=== PATIENT | female | born 1945 | race Caucasian/White ===

== ENCOUNTER 2024-06-23 14:13 | Inpatient (IN) | payer MEDICARE, SELFPAY ==
[2024-06-23] VITALS (7 sets, daily range): BP systolic 130–152; BP diastolic 59–71; PULSE 88–98; RESP 16–22; TEMP 36.5–37.3; O2SAT 96–100; BMI 24.0
--- NOTE | ~2024-06-23 | CT_ITS ---
CT brain wo con Ordering provider: Srini Torres History: 78 years Female with . ams post cva . Comparison: None. Technique: CT of the head without contrast. Radiation reduction technique utilized.The dose-length product was 605.33 mGy-cm. FINDINGS: BRAIN PARENCHYMA AND CSF SPACES: Mild leukoaraiosis and diffuse cortical atrophy. Mild atheromatous d isease. Air is seen in the anterior left lateral ventricle. Slightly dilated ventricles. Post emboliz ation for an aneurysm is seen in the area of the suprasellar area. Slight density seen in the lateral ventricles which may indicate old hemorrhagic changes. No midline shift, mass effect or acute hemorr anita. The brain parenchyma and CSF spaces are otherwise normal. VISUALIZED PARANASAL SINUSES: Left frontal, bilateral ethmoidal and left maxillary sinus disease. MASTOIDS: Well aerated. BONES: Postoperative changes in the right frontal bone evaluation of the tube is noted. Otherwise, Th e bones appear intact. SOFT TISSUES: Visualized nasopharynx is normal. Superficial soft tissues are normal. IMPRESSION: Hydrocephalus with air seen in the anterior left frontal horn. No evidence of acute hemorrhage or infarct seen. Possible old hemorrhage in the lateral ventricles. Postoperative changes in the right frontal bone for a shunt tube. No shunt tube is seen at this time. Reviewed, dictated and finalized at location A. OR [employer] DEVELOPER
--- NOTE | ~2024-06-23 | XR_ITS ---
XR chest 1V Ordering provider: Srini Torres History: 78 years Female with . ams, PT POOR HISTORIAN . Comparison: None. FINDINGS: MEDIASTINUM: The cardiac silhouette is not enlarged. LUNGS: No effusions or pneumothorax. . Prominent bronchovascular markings in the lower lobes with inf iltrate in the right lower lobe suggestive of atelectasis versus pneumonia. OTHER: No free air under the diaphragm. Degenerative changes of the spine. IMPRESSION: Atelectasis versus pneumonia in the lung bases more on the right side. Clinical correlation advised. Reviewed, dictated and finalized at location A. TER MONITOR
--- NOTE | 2024-06-23 14:18 | ECG_ITS ---
Test Date: 2024-06-23 15:49:53 Measurements Intervals [place] Rate: 90 P: 22 AR: 173 QRS: 0 QRSD: 108 T: 4 QT: 324 QTc: 397 Interpretive Statements SINUS RHYTHM MINIMAL Q WAVES- HIGH LATERAL LEADS BORDERLINE T WAVE ABNORMALITY- ANTERIOR LEADS BASELINE ARTIFACT- I, II, III, AVL, V2, V5-V6 BORDERLINE ECG No previous ECG available for comparison Electronically Signed On 06-23-2024 16:21:09 NETWORK CONTROL SUPERVISOR by Jus Mccoy D.O.
--- NOTE | 2024-06-23 16:17 | ED_ITS ---
HPI - General Adult General Chief complaint: Neuro Symptoms/Deficit Stated complaint: altered mental status Time Seen by Provider: 06/23/24 15:36 History of Present Illness HPI narrative: 78-year-old female presents emergency department for evaluation for increased altered mental status. Patient does have a history of a subarachnoid hemorrhage and is currently residing in a local care facility. They report that the patient has had mental decline over the last 3 days. Patient is responsive to adverse stimuli at this time. Related Data Home Medications Medication Instructions Recorded Confirmed etanercept 50 mg/mL (1 mL) 50 mg subcut WEEKLY 06/23/24 06/23/24 subcutaneous pen injector (Enbrel SureClick) folic acid 1 mg tablet 1 mg PO DAILY 06/23/24 06/23/24 levetiracetam 100 mg/mL oral 750 mg PO Q12H 06/23/24 06/23/24 solution (Keppra) methotrexate sodium 2.5 mg tablet 2.5 mg PO WEEKLY 06/23/24 06/23/24 metoprolol tartrate 50 mg tablet 50 mg PO TID 06/23/24 06/23/24 Allergies Allergy/AdvReac Type Severity Reaction Status Date / Time No Known Allergies Allergy Verified 06/23/24 20:11 [facility] Family History Family History (Updated 06/23/24 @ 20:07 by Manisha Pool RN) Father Kidney disease Social History Social History Smoking status: Never smoker Do You Feel Safe in your Home?: Yes Lack of Transportation: No Lack of Food: Never True Current Housing: I Have Housing Concerned About Future Housing: No Difficulty Paying Gas/Electric Bills: No Difficulty Paying for Meds: No Currently Unemployed: No Education: Bachelor's Degree Difficulty w/ Childcare or Family Care: No Spiritual care concerns: No Course Vital Signs Vital signs: Vital Signs Pulse Rate 95 06/23/24 14:18 Respiratory Rate 17 06/23/24 14:18 Blood Pressure 151/69 H 06/23/24 14:18 Pulse Oximetry 96 06/23/24 14:18 Temperature 97.3 F L 06/24/24 13:21 Pulse Rate 87 06/24/24 17:43 Respiratory Rate 22 H 06/24/24 17:41 Blood Pressure 133/55 L 06/24/24 17:41 Pulse Oximetry 100 06/24/24 17:41 Oxygen Delivery Room Air 06/24/24 09:34 Medical Decision Making MDM Narrative Medical decision making narrative: 78-year-old female present to the emergency department for evaluation for increased altered mental status. Chest x-ray was concerning for possible underlying pneumonia head CT shows no acute intracranial abnormality-areas of old hemorrhage and ablation. CT scan showed no acute bleeding but was concerning for possible hydrocephalus. Images were sent to patient's neurosurgical team at [facility] in [place]. I did discuss the case with the hospitalist at [place] and patient was accepted for admission as long as neurosurgery is not concerned about any changes between the CT scans. I did discuss the CT scans within the neuro surgical team at [facility] and they felt that the images were unchanged or improved compared to when patient had been admitted their facility. Patient did have hydrocephalus at that time as well. I rediscussed the case with the hospitalist patient was accepted for admission. Patient was started on antibiotics for suspected pneumonia As the possible underlying etiology for change in mental status. Differential Diagnosis Differential Diagnosis: Worsening subarachnoid hemorrhage, hydrocephalus, meningitis, pneumonia, UTI, COVID, RSV, influenza, CVA, TIA, seizure Medical Records Medical records reviewed: Yes I reviewed the external patient's medical records. Vital Signs Vital Signs: Vital Signs Pulse Rate 95 06/23/24 14:18 Respiratory Rate 17 06/23/24 14:18 Blood Pressure 151/69 H 06/23/24 14:18 Pulse Oximetry 96 06/23/24 14:18 Temperature 97.3 F L 06/24/24 13:21 Pulse Rate 87 06/24/24 17:43 Respiratory Rate 22 H 06/24/24 17:41 Blood Pressure 133/55 L 06/24/24 17:41 Pulse Oximetry 100 06/24/24 17:41 Oxygen Delivery Room Air 06/24/24 09:34 Lab Data Lab results reviewed: Yes I reviewed the patient's lab results. 06/24/24 08:26 06/24/24 08:26 Labs: Lab Results 06/23/24 Range/Units 17:19 WBC 8.6 (4.5-10.0) K/mm3 RBC 2.78 L (4.2-5.4) M/mm3 Hgb 9.2 L (12.0-15.0) g/dL Hct 28.8 L (37.0-47.0) % MCV 103.6 H (80-100) fl MCH 33.1 (26-34) pg MCHC 31.9 L (32-36) g/dl RDW 13.5 (11.5-14.5) % Plt Count 361 (150-375) k/mm3 MPV 10.6 H (7.4-10.4) fl Immature Gran % (Auto) Not Reportable Neut % (Auto) Not Reportable Lymph % (Auto) Not Reportable [place] % (Auto) Not Reportable Eos % (Auto) Not Reportable Baso % (Auto) Not Reportable Lymph # (Auto) Not Reportable [place] # (Auto) Not Reportable Eos # (Auto) Not Reportable Baso # (Auto) Not Reportable Abs Immat Gran (auto) Not Reportable Absolute Neuts (auto) Not Reportable Absolute Nucleated RBC Not Reportable Total Counted 100 Neutrophils % (Manual) 56 (46-73) % Lymphocytes % (Manual) 28.0 (18-44) % Monocytes % (Manual) 6 (3-9) % Eosinophils % (Manual) 10 H (0-4) % Nucleated RBC % Not Reportable Abs Lymphs (Manual) 2.40 (1.1-4.5) K/mm3 Abs Monocytes (Manual) 0.51 (0.1-0.90) K/mm3 Absolute Eos (Manual) 0.86 H (0.02-0.50) K/mm3 Platelet Estimate Adequate (Adequate) Hypochromasia 1+ Schistocytes None seen Sodium 137 (137-145) mmol/L Potassium 4.1 (3.4-5.0) mmol/L Chloride 100 (98-107) mmol/L Carbon Dioxide 31 H (22-30) mmol/L Anion Gap 6 (4-12) mmol/L BUN 18 H (7-17) mg/dL Creatinine 0.40 L (0.7-1.0) mg/dL Estim Creat Clear Calc 103 ml/min Estimated GFR > 60 (59 - ) Glucose 110 (65-110) mg/dL Lactic Acid 1.2 (0.7-2.0) mmol/L Calcium 8.3 L (8.4-10.2) mg/dL Total Bilirubin 0.3 (0.2-1.3) mg/dL AST 39 H (14-36) U/L ALT 32 (6-35) U/L Alkaline Phosphatase 107 (38-126) U/L C-Reactive Protein 5.6 H (<1.0) mg/dL Total Protein 7.0 (6.3-8.2) g/dL Albumin 3.3 L (3.5-5.1) g/dL Influenza A (RT-PCR) Negative (Negative) Influenza B (RT-PCR) Negative (Negative) RSV (RT-PCR) Negative (Negative) SARS-CoV-2 RNA (RT-PCR) Negative (Negative) Imaging Data Radiologist's impression: Impressions Head CT 06/23/24 14:32 IMPRESSION: Hydrocephalus with air seen in the anterior left frontal horn. No evidence of acute hemorrhage or infarct seen. Possible old hemorrhage in the lateral ventricles. Postoperative changes in the right frontal bone for a shunt tube. No shunt tube is seen at this time. Chest X-Ray 06/23/24 14:47 IMPRESSION: Atelectasis versus pneumonia in the lung bases more on the right side. Clinical correlation advised. Critical Care Time Critical Care Time Critical Care Time: Yes Total Critical Care Time: 35 Discharge Plan Discharge Clinical Impression: Right lower lobe pneumonia, Encephalopathy acute, Delirium Patient Disposition: Still a Patient Condition: Serious
[2024-06-23 17:32] LABS: Hematocrit 28.8 % (37.0-47.0); Hemoglobin 9.2 g/dL (12.0-15.0); Mean Corpuscular HGB Conc 31.9 g/dl (32-36); Mean Corpuscular Hemoglobin 33.1 pg (26-34); Mean Corpuscular Volume 103.6 fl (80-100); Mean Platelet Volume 10.6 fl (7.4-10.4); Platelet Count Result 361 k/mm3 (150-375); Red Blood Count 2.78 M/mm3 (4.2-5.4); Red Cell Distribution Width 13.5 % (11.5-14.5); White Blood Count 8.6 K/mm3 (4.5-10.0)
[2024-06-23 17:44] LABS: Lactic Acid Reflex 1.2 mmol/L (0.7-2.0)
[2024-06-23 17:46] LABS: Alanine Aminotransferase 32 U/L (6-35); Albumin Level 3.3 g/dL (3.5-5.1); Alkaline Phosphatase 107 U/L (38-126); Anion Gap 6 mmol/L (4-12); Aspartate Amino Transferase 39 U/L (14-36); Bilirubin,Total 0.3 mg/dL (0.2-1.3); Blood Urea Nitrogen 18 mg/dL (7-17); CRP 5.6 mg/dL (<1.0); Calcium 8.3 mg/dL (8.4-10.2); Carbon Dioxide 31 mmol/L (22-30); Chloride 100 mmol/L (98-107); Estimated CRCL calculation 103 ml/min; Estimated Glomerular Filt Rate > 60; Glucose 110 mg/dL (65-110); Potassium 4.1 mmol/L (3.4-5.0); Sodium 137 mmol/L (137-145)
[2024-06-23 18:03] LABS: Eosinophils Absolute Manual 0.86 K/mm3 (0.02-0.50); Eosinophils Percent Manual 10 % (0-4); Monocytes Absolute Manual 0.51 K/mm3 (0.1-0.90); Monocytes Percent Manual 6 % (3-9); Neutrophils Percent Manual 56 % (46-73); Total Cells Counted 100
[2024-06-23 18:04] LABS: Hypochromasia 1+; Platelet Estimate Adequate (Adequate); Schistocytes None Seen
[2024-06-23 18:08] LABS: Influenza A QL RT-PCR Negative (Negative); Influenza B QL RT-PCR Negative (Negative); RSV RNA, RT-PCR Negative (Negative); SARS-CoV-2 RNA PCR Negative (Negative)
[2024-06-23 20:00] LABS: INR 1.1
[2024-06-23 20:33] LABS: Prothrombin Time 15.1 Seconds (11.1-14.7)
--- NOTE | 2024-06-23 20:50 | P.HP_ITS ---
H&P: HPI History of Present Illness Date/Time: 06/23/24 20:50 Chief Complaint: altered mental status Narrative: This is a 78-year-old with history of recent intracranial bleed, patient at rehabilitation center was brought to the emergency room today due to altered mental status, lethargy. Patient is unable to give any history most of which has been obtained from daughter and son who were at bedside. Preliminary workup significant for chest x-ray with right-sided base pneumonia. CT brain wo con Ordering provider: Srini Torres History: 78 years Female with . ams post cva . Comparison: None. Technique: CT of the head without contrast. Radiation reduction technique utilized.The dose-length product was 605.33 mGy- cm. FINDINGS: BRAIN PARENCHYMA AND CSF SPACES: Mild leukoaraiosis and diffuse cortical atrophy. Mild atheromatous disease. Air is seen in the anterior left lateral ventricle. Slightly dilated ventricles. 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 Slight density seen in the lateral ventricles which may indicate old hemorrhagic changes. No midline shift, mass effect or acute hemorrhage. The brain parenchyma and CSF spaces are otherwise normal. VISUALIZED PARANASAL SINUSES: Left frontal, bilateral ethmoidal and left maxillary sinus disease. MASTOIDS: Well aerated. BONES: Postoperative changes in the right frontal bone evaluation of the tube is noted. Otherwise, The bones appear intact. SOFT TISSUES: Visualized nasopharynx is normal. Superficial soft tissues are normal. IMPRESSION: Hydrocephalus with air seen in the anterior left frontal horn. No evidence of acute hemorrhage or infarct seen. Possible old hemorrhage in the lateral ventricles. Postoperative changes in the right frontal bone for a shunt tube. No shunt tube is seen at this time. XR chest 1V Ordering provider: Srini Torres History: 78 years Female with . ams, PT POOR HISTORIAN . Comparison: None. FINDINGS: MEDIASTINUM: The cardiac silhouette is not enlarged. LUNGS: No effusions or pneumothorax. . Prominent bronchovascular markings in the lower lobes with infiltrate in the right lower lobe suggestive of atelectasis versus pneumonia. OTHER: No free air under the diaphragm. Degenerative changes of the spine. IMPRESSION: Atelectasis versus pneumonia in the lung bases more on the right side. Clinical correlation advised. Review of Systems Review of Systems: ROS unobtainable: Yes unobtainable due to mental status ( Lethargy/obtunded) [facility] Family History Family History (Updated 06/23/24 @ 20:07 by Manisha Pool RN) Father Kidney disease Social History Social History Smoking status: Never smoker Do You Feel Safe in your Home?: Yes Lack of Transportation: No Lack of Food: Never True Current Housing: I Have Housing Concerned About Future Housing: No Difficulty Paying Gas/Electric Bills: No Difficulty Paying for Meds: No Currently Unemployed: No Education: Bachelor's Degree Difficulty w/ Childcare or Family Care: No Spiritual care concerns: No Meds Home Medications and Allergies Home Medications Medication Instructions Recorded Confirmed Type etanercept 50 mg/mL (1 mL) 50 mg subcut WEEKLY 06/23/24 06/23/24 History subcutaneous pen injector (Enbrel SureClick) folic acid 1 mg tablet 1 mg PO DAILY 06/23/24 06/23/24 History levetiracetam 100 mg/mL oral 750 mg PO Q12H 06/23/24 06/23/24 History solution (Keppra) methotrexate sodium 2.5 mg tablet 2.5 mg PO WEEKLY 06/23/24 06/23/24 History metoprolol tartrate 50 mg tablet 50 mg PO TID 06/23/24 06/23/24 History Allergies Allergy/AdvReac Type Severity Reaction Status Date / Time No Known Allergies Allergy Verified 06/23/24 20:11 Vital Signs Vital Signs - 24 hr 06/23/24 14:23 06/23/24 14:25 06/23/24 16:28 Temperature 99.2 F 97.9 F 98.9 F Pulse Rate 93 93 88 Respiratory Rate 20 22 H 17 Blood Pressure 152/71 H 134/67 Pulse Oximetry 98 100 96 06/23/24 14:18 06/23/24 20:15 Temperature 99.0 F Pulse Rate 95 96 Respiratory Rate 17 19 Blood Pressure 151/69 H 130/62 Pulse Oximetry 96 97 Exam Narrative: laying in bed Const: General: comfortable, no acute distress, well developed, ill appearing acutely, lethargic, patient obtunded and average body habitus Nutritional Appearance: average body habitus Orientation/consciousness: oriented to person HENMT: Head: normal to inspection, normocephalic and atraumatic Ears: hearing grossly normal bilaterally Face/Nose/Sinus: normal facial exam Face and sinus: normal facial exam Other: shaved right frontoparietal area Eyes: General: appearance normal, both eyes and all related structures Pupils: Equal, round and reactive pupils present EOM: EOMs intact bilaterally Neck: Neck: full ROM, no lymphadenopathy and no JVD Thyroid: thyroid normal Lymphatic: no lymphadenopathy noted Resp: Effort & Inspection: normal respiratory effort and able to speak in complete sentences Auscultation: clear to auscultation bilaterally Cardio: Jugular venous distension: no JVD Rate: regular rate Rhythm: regular rhythm Heart sounds: S1 normal heart sound present and S2 normal heart sound present GI: Inspection: other ( PEG tube in place) GI Palp: Yes Soft to palpation and Yes No hepatosplenomegaly present : General: Yes deferred Skin: Rashes: no rashes Wounds: no wounds Neuro: General: oriented to person, no focal motor deficits, CN's II-XI intact bilaterally and Unable to assess gait Cranial nerves: Yes CN's II-XII intact bilaterally, Yes Equal, round and reactive pupils present, Yes Bilaterally intact EOM present and Yes facial symmetry Cognition (Neuro): abnormal cognition ( lethargy/[place]) Speech: normal speech Gait exam (Neuro): Unable to assess gait Motor exam (neuro): 5/5 motor strength present throughout Other: patient moves all 4 limbs Extrem: General: normal to inspection, full ROM, no joint enlargement and no pedal edema H&P: Results Labs Labs: Short CBC 06/23/24 Range/Units 17:19 WBC 8.6 (4.5-10.0) K/mm3 Hgb 9.2 L (12.0-15.0) g/dL Hct 28.8 L (37.0-47.0) % Plt Count 361 (150-375) k/mm3 [facility] 06/23/24 17:19 Sodium 137 Potassium 4.1 Chloride 100 Carbon Dioxide 31 H BUN 18 H Creatinine 0.40 L Glucose 110 Calcium 8.3 L Liver Function 06/23/24 Range/Units 17:19 Total Bilirubin 0.3 (0.2-1.3) mg/dL AST 39 H (14-36) U/L ALT 32 (6-35) U/L Alkaline Phosphatase 107 (38-126) U/L Albumin 3.3 L (3.5-5.1) g/dL Assessment and Plan Assessment and plan (1) Right lower lobe pneumonia: Code(s): J18.9 - Pneumonia, unspecified organism Status: Acute Assessment and Plan: admit to regular medical floor patient is started on Rocephin and Zithromax await cultures (2) Encephalopathy acute: Code(s): G93.40 - Encephalopathy, unspecified Status: Acute Assessment and Plan: likely secondary to 1. In the setting of recent intracranial bleed (3) Intracranial bleed: Code(s): I62.9 - Nontraumatic intracranial hemorrhage, unspecified Status: Acute Assessment and Plan: patient is recovering at [facility] happened on May [id number] Hospitalist [facility] Advance Care Plan I have confirmed that the patient's Advanced Care Plan is present, code status is documented, or surrogate decision maker is listed in patient medical record.: Yes Medication Reconciliation I have utilized all available resources to obtain, update and review the patients current medications (includes all prescriptions, OTC, herbals, cannabis, and nutritional supplements).: Yes
[2024-06-23] MEDS: AZITHROMYCIN 500 MG/NS 250 ML 500 MG/250 ML BAG 250 MG IVPB (21:14)
--- NOTE | 2024-06-23 22:02 | ADMGEN ---
This patient, Luly Kirkland, was admitted to Medical Room 251-. Patient/family oriented to hospital policies and general routines including ID bracelet, bed and alarms, visiting hours, pain management, procedures, bathroom and other care routines, personal items, smoking policy, room service/diet, and visiting hours. Information on how to activate the Rapid Response Team has been discussed. Patient/Family are encouraged to report perceived risks to care and to ask questions if they do not understand what they are told or what they should do.
[2024-06-24] VITALS (12 sets, daily range): BP systolic 131–140; BP diastolic 51–64; PULSE 78–98; RESP 14–26; TEMP 36.3–37.2; O2SAT 96–100; BMI 24.0
[2024-06-24] MEDS: levETIRAcetam ORAL SOL 500 MG/5 ML UDC 750 MG PO ×3 (02:19→20:12)
[2024-06-24 02:21] LABS: Glucose Point of Care 124 mg/dl (65-105)
--- NOTE | 2024-06-24 06:54 | PM.IMPN ---
Progress Note: A&P Assessment and Plan (1) Encephalopathy acute: Code(s): G93.40 - Encephalopathy, unspecified Status: Acute Assessment and Plan: Per patient's daughter Florinda patient was AOx2 (self and place) while at [facility]. Head CT: Hydrocephalus with air seen in the anterior left frontal horn. No evidence of acute hemorrhage or infarct seen. Possible old hemorrhage in the lateral ventricles. Postoperative changes in the right frontal bone for a shunt tube. No shunt tube is seen at this time. CXR: Atelectasis versus pneumonia in the lung bases more on the right side UA ordered UDS ordered See plan for right lower lobe pneumonia #2 (2) Right lower lobe pneumonia: Code(s): J18.9 - Pneumonia, unspecified organism Status: Acute Assessment and Plan: CXR: Atelectasis versus pneumonia in the lung bases more on the right side - Antibiotics: Azithromycin 500mg IV q24H and Ceftriaxone 1 g IV q24H started 06/23. Rocephin transitioned to Cefepime 2 g q8H for HAP given patients recent admission at [facility] and SNF placement. - Viral PCR: negative for Flu/COVID/RSV - MRSA negative - Blood cultures obtained on 06/23: pending - no supplemental O2 requirement - supportive treatment - Monitor vital signs, I&Os, neuro status and patient is a fall risk - Follow WBC, serum electrolytes, temperature curves and cultures (3) Intracranial bleed: Code(s): I62.9 - Nontraumatic intracranial hemorrhage, unspecified Status: Acute Assessment and Plan: Per ED note, images were sent to patient's neurosurgical team at [facility] in [place]. ED provider sent CT scans to the neuro surgical team at [facility] and they felt that the images were unchanged or improved compared to when patient had been admitted their facility. Patient did have hydrocephalus at that time as well. Head CT: Hydrocephalus with air seen in the anterior left frontal horn. No evidence of acute hemorrhage or infarct seen. Possible old hemorrhage in the lateral ventricles. Postoperative changes in the right frontal bone for a shunt tube. No shunt tube is seen at this time. - Continue keppra 750 mg BID and metoprolol 50 mg TID (4) Anemia: Code(s): D64.9 - Anemia, unspecified Status: Acute Assessment and Plan: H/H 9.2/28.8 on admission. Unsure what baseline is as there is no prior labs for comparison. No signs of active bleeding. - H/H 9.7/30.2 on am labs - Iron panelL iron 38, TIBC 200, % sat 18 - B12 and folate WNL - started on iron supplementation - Monitor Time Spent With Patient Time with patient: 25 - 35 minutes Subjective Date/time seen: 06/24/24 06:54 Interval history: 78 year old female with past medical history of hypertension and SAH on 05/23/2024 (evaluated at [facility]) presents to the hospital for altered mental status and lethargy. Patient is alert to voice. Following some commands. History obtained from daughter, Florinda. She states that her mom was being treated for SAH at [facility] on 05/23 before being DC to [facility]. She was doing well AOx2 baseline (self, place. per daughter patient never knows year or whats going). However Florinda then noticed that patient was having more difficulty verbalizing and became more lethargic prompting them to take her to the hospital. Daughter states that the patient is doing better today at least saying one word that is clear. Discussed patient with nutrition who is talking with [facility] about patients tube feeds. Will resume tube feeds accordingly. Per daughter patient was also on a thickened liquid diet at the facility. As mentation improves can consider a MBS. Review of Systems Review of Systems: ROS unobtainable: Yes unobtainable due to mental status Exam Narrative: AF HR 86 RR 26 SpO2 97 BP 131/51 General: female in no acute respiratory distress who is ill appearing, lying semi recumbent in bed. HEENT: Normocephalic. Atraumatic. Pupils equal round reactive to light. Sclera clear and anicteric. No facial asymmetry. Chest: Lungs are diminshed to auscultation bilaterally. No wheezes or crackles. CV: Heart was regular rate and rhythm. S1-S2. No murmurs, gallops, or rubs. Abd: Abdomen was soft. Nontender. Nondistended. Positive bowel sounds. No organomegaly or masses. Ext: No clubbing, cyanosis, or edema. 2+ DP pulses bilaterally. Neuro: Patient is alert to voice. Follows some commands. Says minimal words but speech is clear at that time. Strength is symmetrical in the upper extremities. Moving the lower extremities. Skin: Warm and dry. Slight rash/dry skin noted to patients left side of her chest. Objective Data Vital Signs Vital Signs: Vital Signs - 24 hr 06/23/24 14:23 06/23/24 14:25 06/23/24 16:28 Temperature 99.2 F 97.9 F 98.9 F Pulse Rate 93 93 88 Respiratory Rate 20 22 H 17 Blood Pressure 152/71 H 134/67 Pulse Oximetry 98 100 96 Oxygen Delivery 06/23/24 14:18 06/23/24 20:15 06/23/24 20:56 Temperature 99.0 F 97.7 F Pulse Rate 95 96 98 Respiratory Rate 17 19 16 Blood Pressure 151/69 H 130/62 133/59 L Pulse Oximetry 96 97 97 Oxygen Delivery 06/23/24 23:34 06/24/24 00:04 06/24/24 05:30 Temperature 98.9 F Pulse Rate 98 98 93 Respiratory Rate 16 14 Blood Pressure 134/62 Pulse Oximetry 97 98 Oxygen Delivery Room Air 06/24/24 04:01 Temperature Pulse Rate 91 Respiratory Rate Blood Pressure Pulse Oximetry Oxygen Delivery Intake/Output Intake/Output: Intake & Output 06/21/24 06/22/24 06/23/24 06/24/24 23:59 23:59 23:59 23:59 Intake Total 50 0 Output Total 400 Balance 50 -400 Meds/Results Medications: Active Medications Generic Name Dose Route Start Last Admin Trade Name Freq PRN Reason Stop Dose Admin Acetaminophen 1,000 mg 06/24/24 01:19 Acetaminophen 500 Mg Tablet PO Q6H PRN Mild Pain (1-3) or Fever Ceftriaxone Sodium 1 gm in 50 mls @ 100 mls/hr 06/24/24 18:00 Rocephin 1 Gm/Ns 50 Ml IVPB Q24H LOC Azithromycin 500 mg in 250 mls @ 250 mls/hr 06/24/24 18:00 Zithromax IVPB Q24H LOC Levetiracetam 750 mg 06/24/24 01:00 06/24/24 02:19 Levetiracetam Oral Christin 500 Mg/5 Ml Udc PO 750 mg Q12HR LOC Administration Metoprolol Tartrate 50 mg 06/24/24 09:00 Metoprolol Tartrate 50 Mg Tab PO TID LOC Ondansetron HCl 4 mg 06/24/24 00:59 Ondansetron Inj 4 Mg/2 Ml Vial IV PUSH Q6H PRN Nausea And Vomiting Radiology Results: ITS Impressions Head CT 06/23/24 14:32 IMPRESSION: Hydrocephalus with air seen in the anterior left frontal horn. No evidence of acute hemorrhage or infarct seen. Possible old hemorrhage in the lateral ventricles. Postoperative changes in the right frontal bone for a shunt tube. No shunt tube is seen at this time. Chest X-Ray 06/23/24 14:47 IMPRESSION: Atelectasis versus pneumonia in the lung bases more on the right side. Clinical correlation advised. Labs Labs: Laboratory Results - last 24 hr 06/23/24 06/23/24 06/24/24 17:19 19:37 02:19 WBC 8.6 RBC 2.78 L Hgb 9.2 L Hct 28.8 L MCV 103.6 H MCH 33.1 MCHC 31.9 L RDW 13.5 Plt Count 361 MPV 10.6 H Immature Gran % (Auto) Not Reportable Neut % (Auto) Not Reportable Lymph % (Auto) Not Reportable [place] % (Auto) Not Reportable Eos % (Auto) Not Reportable Baso % (Auto) Not Reportable Lymph # (Auto) Not Reportable [place] # (Auto) Not Reportable Eos # (Auto) Not Reportable Baso # (Auto) Not Reportable Abs Immat Gran (auto) Not Reportable Absolute Neuts (auto) Not Reportable Absolute Nucleated RBC Not Reportable Total Counted 100 Neutrophils % (Manual) 56 Lymphocytes % (Manual) 28.0 Monocytes % (Manual) 6 Eosinophils % (Manual) 10 H Nucleated RBC % Not Reportable Abs Lymphs (Manual) 2.40 Abs Monocytes (Manual) 0.51 Absolute Eos (Manual) 0.86 H Platelet Estimate Adequate Hypochromasia 1+ Schistocytes None seen PT 15.1 H INR 1.1 APTT 20.0 L Sodium 137 Potassium 4.1 Chloride 100 Carbon Dioxide 31 H Anion Gap 6 BUN 18 H Creatinine 0.40 L Estim Creat Clear Calc 103 Estimated GFR > 60 Glucose 110 POC Capillary Glucose 124 H Lactic Acid 1.2 Calcium 8.3 L Total Bilirubin 0.3 AST 39 H ALT 32 Alkaline Phosphatase 107 C-Reactive Protein 5.6 H Total Protein 7.0 Albumin 3.3 L Influenza A (RT-PCR) Negative Influenza B (RT-PCR) Negative RSV (RT-PCR) Negative SARS-CoV-2 RNA (RT-PCR) Negative Quality VTE Prophylaxis VTE prophylaxis: mechanical ordered
[2024-06-24 08:35] LABS: Glucose Point of Care 110 mg/dl (65-105)
[2024-06-24 08:41] LABS: Basophils Percent Auto 0.6 % (0.2-1.2); Eosinophils Absolute Auto 1.5 K/mm3 (0-0.3); Eosinophils Percent Auto 20.6 % (0-4.4); Hematocrit 30.2 % (37.0-47.0); Hemoglobin 9.7 g/dL (12.0-15.0); Immature Granulocyte Absolute 0.02 K/mm3 (0.00-0.031); Immature Granulocyte Percent A 0.3 % (0-0.5); Lymphocytes Absolute Auto 1.86 K/mm3 (0.9-3.2); Lymphocytes Percent Auto 25.9 % (18.3-44.2); Mean Corpuscular HGB Conc 32.1 g/dl (32-36); Mean Corpuscular Hemoglobin 32.8 pg (26-34); Monocytes Absolute Auto 0.6 K/mm3 (0.1-0.6); Monocytes Percent Auto 8.4 % (2.6-8.5); Neutrophils Absolute Auto 3.2 K/mm3 (1.3-6.7); Neutrophils Percent Auto 44.2 % (45.5-73.1); Platelet Count Result 408 k/mm3 (150-375); Red Blood Count 2.96 M/mm3 (4.2-5.4); Red Cell Distribution Width 13.5 % (11.5-14.5); White Blood Count 7.2 K/mm3 (4.5-10.0)
[2024-06-24 08:51] LABS: Alanine Aminotransferase 30 U/L (6-35); Albumin Level 3.2 g/dL (3.5-5.1); Alkaline Phosphatase 105 U/L (38-126); Anion Gap 6 mmol/L (4-12); Aspartate Amino Transferase 34 U/L (14-36); Bilirubin,Total 0.4 mg/dL (0.2-1.3); Blood Urea Nitrogen 12 mg/dL (7-17); Calcium 8.4 mg/dL (8.4-10.2); Carbon Dioxide 30 mmol/L (22-30); Chloride 101 mmol/L (98-107); Estimated CRCL calculation 71 ml/min; Estimated Glomerular Filt Rate > 60; Glucose 113 mg/dL (65-110); Potassium 4.1 mmol/L (3.4-5.0); Sodium 137 mmol/L (137-145)
[2024-06-24] MEDS: METOPROLOL TARTRATE 50 MG TAB PO ×3 (09:34→17:43)
[2024-06-24 10:39] LABS: Iron 38 ug/dL (37-170)
[2024-06-24 10:49] LABS: Percent Iron Saturation 19 % (20-50)
[2024-06-24 11:46] LABS: Folic Acid 19.7 ng/mL (2.76->20)
[2024-06-24] MEDS: CEFEPIME 2 GM/NS 50 ML 2 GM/50 ML BAG IVPB ×2 (13:11→21:57)
[2024-06-24] MEDS: HYDROCORTISONE 1% 30 GM CREAM 1 APPLIC TOPICAL ×2 (14:22→20:12)
[2024-06-24 15:12] LABS: Glucose Point of Care 110 mg/dl (65-105)
[2024-06-24 16:01] LABS: Toxigenic C. Diff NEGATIVE (NEGATIVE)
[2024-06-24] MEDS: SODIUM CHLORIDE 0.9% IV 1,000 ML 75 ML IV CONT (17:30)
[2024-06-24] MEDS: AZITHROMYCIN 500 MG/NS 250 ML 500 MG/250 ML BAG 250 MG IVPB (17:43)
[2024-06-24] MEDS: FERROUS SULFATE 325 MG TABLET DR PO (17:44)
[2024-06-24] MEDS: LORATADINE 10 MG TABLET PO (19:14)
[2024-06-24 20:37] LABS: Glucose Point of Care 121 mg/dl (65-105)
[2024-06-25] VITALS (13 sets, daily range): BP systolic 129–143; BP diastolic 51–61; PULSE 82–96; RESP 14–20; TEMP 36.6–37.6; O2SAT 95–100; BMI 10.0
[2024-06-25 05:04] LABS: Add Urine Microscopic? YES; Appearance Urine Turbid (Clear); Bacteria Urine 4+ /hpf; Bilirubin Urine Negative (Negative); Blood Urine Negative (Negative); Budding Yeast Urine Present /hpf; Color Urine Dark Yellow (Yellow); Glucose Urine UA Negative (Negative); Ketones Urine Negative (Negative); Leukocyte Esterase Ur 2+ LEU/UL (Negative); Need Manual Microscopic Reviewed; Nitrate Urine Negative (Negative); Non Pathogenic Casts 0-2; Protein Urine 1+ mg/dL (Negative); RBC Urine 51-100 /hpf (0-2); Specific Grav Ur 1.024 (1.001-1.035); Squamous Epithelial Cell Urine None Seen /hpf (Few); WBC Urine 21-50 /hpf (0-3); pH Urine 7.5 (5.0-9.0)
[2024-06-25] MEDS: CEFEPIME 2 GM/NS 50 ML 2 GM/50 ML BAG IVPB ×3 (05:23→22:11)
[2024-06-25 05:34] LABS: Basophils Percent Auto 0.5 % (0.2-1.2); Eosinophils Absolute Auto 1.4 K/mm3 (0-0.3); Eosinophils Percent Auto 15.6 % (0-4.4); Hematocrit 31.4 % (37.0-47.0); Hemoglobin 9.7 g/dL (12.0-15.0); Immature Granulocyte Absolute 0.02 K/mm3 (0.00-0.031); Immature Granulocyte Percent A 0.2 % (0-0.5); Lymphocytes Absolute Auto 2.68 K/mm3 (0.9-3.2); Lymphocytes Percent Auto 30.8 % (18.3-44.2); Mean Corpuscular HGB Conc 30.9 g/dl (32-36); Mean Corpuscular Hemoglobin 31.7 pg (26-34); Mean Corpuscular Volume 102.6 fl (80-100); Mean Platelet Volume 10.7 fl (7.4-10.4); Monocytes Absolute Auto 0.8 K/mm3 (0.1-0.6); Monocytes Percent Auto 8.8 % (2.6-8.5); Neutrophils Absolute Auto 3.8 K/mm3 (1.3-6.7); Neutrophils Percent Auto 44.1 % (45.5-73.1); Platelet Count Result 332 k/mm3 (150-375); Red Blood Count 3.06 M/mm3 (4.2-5.4); Red Cell Distribution Width 13.3 % (11.5-14.5); White Blood Count 8.7 K/mm3 (4.5-10.0)
[2024-06-25 05:47] LABS: Alanine Aminotransferase 31 U/L (6-35); Albumin Level 3.4 g/dL (3.5-5.1); Alkaline Phosphatase 120 U/L (38-126); Anion Gap 6 mmol/L (4-12); Aspartate Amino Transferase 37 U/L (14-36); Bilirubin,Total 0.5 mg/dL (0.2-1.3); Blood Urea Nitrogen 12 mg/dL (7-17); Calcium 8.5 mg/dL (8.4-10.2); Carbon Dioxide 26 mmol/L (22-30); Chloride 103 mmol/L (98-107); Estimated CRCL calculation 71 ml/min; Estimated Glomerular Filt Rate > 60; Glucose 134 mg/dL (65-110); Sodium 135 mmol/L (137-145)
[2024-06-25] MEDS: SODIUM CHLORIDE 0.9% IV 1,000 ML 75 ML IV CONT (09:15)
--- NOTE | 2024-06-25 10:27 | P.PNIM_ITS ---
Progress Note: A&P Assessment and Plan (1) Encephalopathy acute: Code(s): G93.40 - Encephalopathy, unspecified Status: Acute Assessment and Plan: * Per patient's daughter Florinda patient was AOx2 (self and place) while at [facility] * Head CT: Hydrocephalus with air seen in the anterior left frontal horn. No evidence of acute hemorrhage or infarct seen. Possible old hemorrhage in the lateral ventricles. Postoperative changes in the right frontal bone for a shunt tube. No shunt tube is seen at this time. * CXR: Atelectasis versus pneumonia in the lung bases more on the right side * UA ordered: Leuko 2+, RBC 51-100, WBC 21-50, Bacteria 4+, yeast present. * Urine culture pending. * See plan for right lower lobe pneumonia #2 (2) Right lower lobe pneumonia: Code(s): J18.9 - Pneumonia, unspecified organism Status: Acute Assessment and Plan: CXR: Atelectasis versus pneumonia in the lung bases more on the right side * Antibiotics: Azithromycin 500mg IV q24H and Ceftriaxone 1 g IV q24H started 06/23. Rocephin transitioned to Cefepime 2 g q8H for HAP given patients recent admission at [place] and SNF placement. * Viral PCR: negative for Flu/COVID/RSV * MRSA negative * Blood cultures obtained on 06/23: no growth to date * no supplemental O2 requirement * supportive treatment * Monitor vital signs, I&Os, neuro status and patient is a fall risk * Follow WBC, serum electrolytes, temperature curves and cultures * PT/OT (3) Intracranial bleed: Code(s): I62.9 - Nontraumatic intracranial hemorrhage, unspecified Status: Acute Assessment and Plan: * Per ED note, images were sent to patient's neurosurgical team at [facility] in [place]. ED provider sent CT scans to the neuro surgical team at [facility] and they felt that the images were unchanged or improved compared to when patient had been admitted their facility. Patient did have hydrocephalus at that time as well. * Head CT: Hydrocephalus with air seen in the anterior left frontal horn. No evidence of acute hemorrhage or infarct seen. Possible old hemorrhage in the lateral ventricles. Postoperative changes in the right frontal bone for a shunt tube. No shunt tube is seen at this time. * Continue keppra 750 mg BID and metoprolol 50 mg TID (4) Anemia: Code(s): D64.9 - Anemia, unspecified Status: Acute Assessment and Plan: H/H 9.2/28.8 on admission. Unsure what baseline is as there is no prior labs for comparison. No signs of active bleeding. - H/H 9.7/31.4on am labs - Iron panelL iron 38, TIBC 200, % sat 18 - B12 and folate WNL - started on iron supplementation - Monitor Subjective Date/time seen: 06/25/24 10:27 Interval history: Patient denies pain. Daughter at bedside and reports that patient was talking with her this morning. Daughter reports that patient worn out from being changed. Denies complaints at present. Alert to voice. Following some commands. Daughter would like patient to go back to [facility] when stable. Review of Systems Review of Systems: All systems reviewed & are unremarkable except as noted in HPI and below Exam Const: General: no acute distress Resp: Auscultation: diminished lung sounds Cardio: Rate: regular rate Rhythm: regular rhythm GI: GI Palp: Yes Soft to palpation Auscultation: normal bowel sounds Skin: Other: Warm and dry. Neuro: Other: Patient is alert to voice. Follows some commands. Objective Data Vital Signs Vital Signs: Vital Signs - 24 hr 06/24/24 13:21 06/24/24 13:24 06/24/24 12:00 Temperature 97.3 F L Pulse Rate 86 86 78 Respiratory Rate 26 H Blood Pressure 131/51 L Pulse Oximetry 97 Oxygen Delivery 06/24/24 17:41 06/24/24 17:43 06/24/24 16:00 Temperature Pulse Rate 87 87 83 Respiratory Rate 22 H Blood Pressure 133/55 L Pulse Oximetry 100 Oxygen Delivery 06/24/24 20:00 06/24/24 20:00 06/25/24 00:00 Temperature 99.7 F H Pulse Rate 87 85 85 Respiratory Rate 22 H 18 Blood Pressure 138/58 L Pulse Oximetry 100 100 Oxygen Delivery Room Air 06/25/24 00:00 06/25/24 04:00 06/25/24 06:32 Temperature 99.4 F Pulse Rate 85 92 96 Respiratory Rate 18 Blood Pressure 143/51 H Pulse Oximetry 95 Oxygen Delivery 06/25/24 08:00 Temperature 98.7 F Pulse Rate 95 Respiratory Rate 14 Blood Pressure 129/59 L Pulse Oximetry 100 Oxygen Delivery Intake/Output Intake/Output: Intake & Output 06/22/24 06/23/24 06/24/24 06/25/24 23:59 23:59 23:59 23:59 Intake Total 50 350 Output Total 850 600 Balance 50 -500 -600 Meds/Results Medications: Active Medications Generic Name Dose Route Start Last Admin Trade Name Freq PRN Reason Stop Dose Admin Acetaminophen 1,000 mg 06/24/24 01:19 Acetaminophen 500 Mg Tablet PO Q6H PRN Mild Pain (1-3) or Fever Ferrous Sulfate 325 mg 06/24/24 17:00 06/24/24 17:44 Ferrous Sulfate [address] PO 325 mg BID LOC Administration Hydrocortisone 1 applic 06/24/24 14:05 06/24/24 20:12 Hydrocortisone 1% 30 Gm Cream TOPICAL 1 applic Q12HR LOC Administration Azithromycin 500 mg in 250 mls @ 250 mls/hr 06/24/24 18:00 06/24/24 19:50 Zithromax IVPB Infused Q24H LOC Infusion Cefepime HCl 2 gm in 50 mls @ 100 mls/hr 06/24/24 14:00 06/25/24 05:23 Maxipime 2 Gm/Ns 50 Ml IVPB 100 mls/hr Q8H LOC Administration Sodium Chloride 1,000 mls @ 75 mls/hr 06/24/24 17:20 06/24/24 17:30 Normal Saline Iv IV CONT 75 mls/hr .[id number] LOC Administration Levetiracetam 750 mg 06/24/24 01:00 06/24/24 20:12 Levetiracetam Oral Christin 500 Mg/5 Ml Udc PO 750 mg Q12HR LOC Administration Loratadine 10 mg 06/24/24 18:55 06/24/24 19:14 Loratadine 10 Mg Tablet PO 10 mg QAM LOC Administration Metoprolol Tartrate 50 mg 06/24/24 09:00 06/24/24 17:43 Metoprolol Tartrate 50 Mg Tab PO 50 mg TID LOC Administration Ondansetron HCl 4 mg 06/24/24 00:59 Ondansetron Inj 4 Mg/2 Ml Vial IV PUSH Q6H PRN Nausea And Vomiting Radiology Results: ITS Impressions Head CT 06/23/24 14:32 IMPRESSION: Hydrocephalus with air seen in the anterior left frontal horn. No evidence of acute hemorrhage or infarct seen. Possible old hemorrhage in the lateral ventricles. Postoperative changes in the right frontal bone for a shunt tube. No shunt tube is seen at this time. Chest X-Ray 06/23/24 14:47 IMPRESSION: Atelectasis versus pneumonia in the lung bases more on the right side. Clinical correlation advised. Labs Labs: Laboratory Results - last 24 hr 06/24/24 06/24/24 06/24/24 04:30 08:26 14:01 WBC RBC Hgb Hct MCV MCH MCHC RDW Plt Count MPV Immature Gran % (Auto) Neut % (Auto) Lymph % (Auto) [place] % (Auto) Eos % (Auto) Baso % (Auto) Lymph # (Auto) [place] # (Auto) Eos # (Auto) Baso # (Auto) Abs Immat Gran (auto) Absolute Neuts (auto) Absolute Nucleated RBC Nucleated RBC % Sodium Potassium Chloride Carbon Dioxide Anion Gap BUN Creatinine Estim Creat Clear Calc Estimated GFR Glucose POC Capillary Glucose Calcium Iron 38 TIBC 200 L % Saturation 19 L Total Bilirubin AST ALT Alkaline Phosphatase Total Protein Albumin Vitamin B12 665.0 Folate 19.7 Urine Color Dark yellow Urine Appearance Turbid H Urine pH 7.5 Ur Specific [place] 1.024 Urine Protein 1+ H Urine Glucose (UA) Negative Urine Ketones Negative Ur Blood (Man) Negative Urine Nitrate Negative Urine Bilirubin Negative Urine Urobilinogen 1.0 Add Ur Microanalysis Reviewed Leukocyte Esterase Rfl 2+ H Urine RBC 51-100 H Urine WBC 21-50 H Ur Squamous Epith Cells None seen Urine Bacteria 4+ H Urine Casts 0-2 Urine Yeast (Budding) Present H C. difficile (PCR) Negative 06/24/24 06/24/24 06/25/24 15:09 20:29 05:11 WBC 8.7 RBC 3.06 L Hgb 9.7 L Hct 31.4 L MCV 102.6 H MCH 31.7 MCHC 30.9 L RDW 13.3 Plt Count 332 MPV 10.7 H Immature Gran % (Auto) 0.2 Neut % (Auto) 44.1 L Lymph % (Auto) 30.8 [place] % (Auto) 8.8 H Eos % (Auto) 15.6 H Baso % (Auto) 0.5 Lymph # (Auto) 2.68 [place] # (Auto) 0.8 H Eos # (Auto) 1.4 H Baso # (Auto) 0.0 Abs Immat Gran (auto) 0.02 Absolute Neuts (auto) 3.8 Absolute Nucleated RBC 0.000 Nucleated RBC % 0.0 Sodium 135 L Potassium 4.0 Chloride 103 Carbon Dioxide 26 Anion Gap 6 BUN 12 Creatinine 0.50 L Estim Creat Clear Calc 71 Estimated GFR > 60 Glucose 134 H POC Capillary Glucose 110 H 121 H Calcium 8.5 Iron TIBC % Saturation Total Bilirubin 0.5 AST 37 H ALT 31 Alkaline Phosphatase 120 Total Protein 8.0 Albumin 3.4 L Vitamin B12 Folate Urine Color Urine Appearance Urine pH Ur Specific [place] Urine Protein Urine Glucose (UA) Urine Ketones Ur Blood (Man) Urine Nitrate Urine Bilirubin Urine Urobilinogen Add Ur Microanalysis Leukocyte Esterase Rfl Urine RBC Urine WBC Ur Squamous Epith Cells Urine Bacteria Urine Casts Urine Yeast (Budding) C. difficile (PCR) Quality VTE Prophylaxis VTE prophylaxis: mechanical ordered
[2024-06-25] MEDS: HYDROCORTISONE 1% 30 GM CREAM 1 APPLIC TOPICAL ×2 (10:32→20:06)
[2024-06-25] MEDS: METOPROLOL TARTRATE 50 MG TAB PO ×3 (10:33→17:26)
[2024-06-25] MEDS: LORATADINE 10 MG TABLET PO (10:34)
[2024-06-25] MEDS: FERROUS SULFATE 325 MG TABLET DR PO ×2 (10:34→17:27)
[2024-06-25] MEDS: levETIRAcetam ORAL SOL 500 MG/5 ML UDC 750 MG PO ×2 (10:35→20:06)
[2024-06-25 11:56] LABS: Glucose Point of Care 112 mg/dl (65-105)
[2024-06-25] MEDS: AZITHROMYCIN 500 MG/NS 250 ML 500 MG/250 ML BAG 250 MG IVPB (17:27)
[2024-06-25 22:36] LABS: Amphetamine Screen Urine Negative (Negative); Barbiturate Screen Urine Negative (Negative); Benzodiazepines Screen Urine Negative (Negative); Cannabinoid Screen Urine Negative (Negative); Cocaine Screen Urine Negative (Negative); Methadone Screen Urine Negative (Negative); Opiate Screen Urine Negative (Negative); Phencyclidine Screen Urine Negative (Negative)
[2024-06-25 22:41] LABS: Glucose Point of Care 146 mg/dl (65-105)
[2024-06-26] VITALS (13 sets, daily range): BP systolic 121–149; BP diastolic 42–74; PULSE 86–106; RESP 16–18; TEMP 36.8–37.2; O2SAT 96–100
[2024-06-26] MEDS: SODIUM CHLORIDE 0.9% IV 1,000 ML 75 ML IV CONT ×2 (03:02→16:12)
[2024-06-26 05:58] LABS: Glucose Point of Care 142 mg/dl (65-105)
[2024-06-26] MEDS: CEFEPIME 2 GM/NS 50 ML 2 GM/50 ML BAG IVPB ×2 (06:15→13:04)
[2024-06-26 06:17] LABS: Basophils Percent Auto 0.6 % (0.2-1.2); Eosinophils Absolute Auto 1.1 K/mm3 (0-0.3); Eosinophils Percent Auto 15.5 % (0-4.4); Hematocrit 25.7 % (37.0-47.0); Hemoglobin 8.1 g/dL (12.0-15.0); Immature Granulocyte Absolute 0.01 K/mm3 (0.00-0.031); Immature Granulocyte Percent A 0.1 % (0-0.5); Lymphocytes Percent Auto 26.6 % (18.3-44.2); Mean Corpuscular HGB Conc 31.5 g/dl (32-36); Mean Corpuscular Hemoglobin 31.8 pg (26-34); Mean Corpuscular Volume 100.8 fl (80-100); Mean Platelet Volume 10.4 fl (7.4-10.4); Monocytes Absolute Auto 0.7 K/mm3 (0.1-0.6); Monocytes Percent Auto 10.2 % (2.6-8.5); Neutrophils Absolute Auto 3.4 K/mm3 (1.3-6.7); Platelet Count Result 409 k/mm3 (150-375); Red Blood Count 2.55 M/mm3 (4.2-5.4); Red Cell Distribution Width 13.3 % (11.5-14.5); White Blood Count 7.2 K/mm3 (4.5-10.0)
[2024-06-26 06:40] LABS: Alanine Aminotransferase 27 U/L (6-35); Albumin Level 2.7 g/dL (3.5-5.1); Alkaline Phosphatase 99 U/L (38-126); Anion Gap 3 mmol/L (4-12); Aspartate Amino Transferase 35 U/L (14-36); Bilirubin,Total 0.4 mg/dL (0.2-1.3); Blood Urea Nitrogen 11 mg/dL (7-17); Calcium 7.9 mg/dL (8.4-10.2); Carbon Dioxide 26 mmol/L (22-30); Chloride 106 mmol/L (98-107); Estimated CRCL calculation 71 ml/min; Estimated Glomerular Filt Rate > 60; Glucose 153 mg/dL (65-110); Potassium 3.7 mmol/L (3.4-5.0); Sodium 135 mmol/L (137-145)
[2024-06-26] MEDS: levETIRAcetam ORAL SOL 500 MG/5 ML UDC 750 MG PO ×2 (09:05→20:23)
[2024-06-26] MEDS: LORATADINE 10 MG TABLET PO (09:05)
[2024-06-26] MEDS: METOPROLOL TARTRATE 50 MG TAB PO ×3 (09:06→17:26)
[2024-06-26] MEDS: FERROUS SULFATE 325 MG TABLET DR PO ×2 (09:06→17:25)
[2024-06-26] MEDS: HYDROCORTISONE 1% 30 GM CREAM 1 APPLIC TOPICAL ×2 (09:07→20:24)
--- NOTE | 2024-06-26 10:28 | P.PNIM_ITS ---
Progress Note: A&P Assessment and Plan (1) Encephalopathy acute: Code(s): G93.40 - Encephalopathy, unspecified Status: Acute Assessment and Plan: * Per patient's daughter Florinda patient was AOx2 (self and place) while at [facility]. * Head CT: Hydrocephalus with air seen in the anterior left frontal horn. No evidence of acute hemorrhage or infarct seen. Possible old hemorrhage in the lateral ventricles. Postoperative changes in the right frontal bone for a shunt tube. No shunt tube is seen at this time. * CXR: Atelectasis versus pneumonia in the lung bases more on the right side * UA ordered: Leuko 2+, RBC 51-100, WBC 21-50, Bacteria 4+, yeast present. * Urine culture negative for a UTI. * See plan for right lower lobe pneumonia #2 (2) Right lower lobe pneumonia: Code(s): J18.9 - Pneumonia, unspecified organism Status: Acute Assessment and Plan: CXR: Atelectasis versus pneumonia in the lung bases more on the right side * Antibiotics: Azithromycin 500mg PO daily and Augmentin 875-125 mg 1 tab PO q 12. * Viral PCR: negative for Flu/COVID/RSV * MRSA negative * Blood cultures obtained on 06/23: no growth to date * no supplemental O2 requirement * supportive treatment * Monitor vital signs, I&Os, neuro status and patient is a fall risk * Follow WBC, serum electrolytes, temperature curves and cultures * PT/OT (3) Intracranial bleed: Code(s): I62.9 - Nontraumatic intracranial hemorrhage, unspecified Status: Acute Assessment and Plan: * Per ED note, images were sent to patient's neurosurgical team at [facility] in [place]. ED provider sent CT scans to the neuro surgical team at [facility] and they felt that the images were unchanged or improved compared to when patient had been admitted their facility. Patient did have hydrocephalus at that time as well. * Head CT: Hydrocephalus with air seen in the anterior left frontal horn. No evidence of acute hemorrhage or infarct seen. Possible old hemorrhage in the lateral ventricles. Postoperative changes in the right frontal bone for a shunt tube. No shunt tube is seen at this time. * Continue keppra 750 mg BID and metoprolol 50 mg TID (4) Anemia: Code(s): D64.9 - Anemia, unspecified Status: Acute Assessment and Plan: H/H 9.2/28.8 on admission. Unsure what baseline is as there is no prior labs for comparison. No signs of active bleeding. - H/H 8.1/25.7 on am labs, repeat labs 9.6/29.2. - Iron panelL iron 38, TIBC 200, % sat 18 - B12 and folate WNL - started on iron supplementation - Monitor Subjective Date/time seen: 06/26/24 10:28 Interval history: Patient sitting up in chair with son at bedside. Son reports patient had just completed PT and OT and was getting tired. Pateint denied pain. Review of Systems Review of Systems: All systems reviewed & are unremarkable except as noted in HPI and below Exam Const: General: comfortable and no acute distress Resp: Effort & Inspection: normal respiratory effort Auscultation: diminished lung sounds Cardio: Rate: regular rate Rhythm: regular rhythm GI: GI Palp: Yes Soft to palpation Auscultation: normal bowel sounds Skin: Other: warm and dry Psych: Other: Patient is alert to voice. Follows some commands. Objective Data Vital Signs Vital Signs: Vital Signs - 24 hr 06/25/24 10:33 06/25/24 11:22 06/25/24 13:45 Temperature Pulse Rate 87 92 Respiratory Rate Blood Pressure Pulse Oximetry Oxygen Delivery Room Air 06/25/24 14:00 06/25/24 10:30 06/25/24 10:30 Temperature 97.9 F Pulse Rate 91 95 Respiratory Rate 14 Blood Pressure 139/54 L Pulse Oximetry 100 100 Oxygen Delivery Room Air 06/25/24 12:00 06/25/24 17:26 06/25/24 16:00 Temperature Pulse Rate 82 86 94 Respiratory Rate Blood Pressure Pulse Oximetry Oxygen Delivery 06/25/24 20:00 06/25/24 21:14 06/26/24 00:00 Temperature 98.1 F Pulse Rate 84 89 86 Respiratory Rate 20 Blood Pressure 130/61 Pulse Oximetry 98 Oxygen Delivery 06/26/24 04:00 06/26/24 06:12 06/26/24 09:06 Temperature 98.6 F Pulse Rate 96 93 90 Respiratory Rate 18 Blood Pressure 143/74 H Pulse Oximetry 99 Oxygen Delivery 06/26/24 09:23 Temperature Pulse Rate Respiratory Rate Blood Pressure Pulse Oximetry 99 Oxygen Delivery Room Air Intake/Output Intake/Output: Intake & Output 06/23/24 06/24/24 06/25/24 06/26/24 23:59 23:59 23:59 23:59 Intake Total 50 350 2150 0 Output Total 850 600 250 Balance 50 -500 1550 -250 Meds/Results Medications: Active Medications Generic Name Dose Route Start Last Admin Trade Name Freq PRN Reason Stop Dose Admin Acetaminophen 1,000 mg 06/24/24 01:19 Acetaminophen 500 Mg Tablet PO Q6H PRN Mild Pain (1-3) or Fever Ferrous Sulfate 325 mg 06/24/24 17:00 06/26/24 09:06 Ferrous Sulfate [address] PO 325 mg BID LOC Administration Hydrocortisone 1 applic 06/24/24 14:05 06/26/24 09:07 Hydrocortisone 1% 30 Gm Cream TOPICAL 1 applic Q12HR LOC Administration Azithromycin 500 mg in 250 mls @ 250 mls/hr 06/24/24 18:00 06/25/24 17:27 Zithromax IVPB 250 mls/hr Q24H LOC Administration Cefepime HCl 2 gm in 50 mls @ 100 mls/hr 06/24/24 14:00 06/26/24 06:15 Maxipime 2 Gm/Ns 50 Ml IVPB 100 mls/hr Q8H LOC Administration Sodium Chloride 1,000 mls @ 75 mls/hr 06/24/24 17:20 06/26/24 03:02 Normal Saline Iv IV CONT 75 mls/hr .[id number] LOC Administration Levetiracetam 750 mg 06/24/24 01:00 06/26/24 09:05 Levetiracetam Oral Christin 500 Mg/5 Ml Udc PO 750 mg Q12HR LOC Administration Loratadine 10 mg 06/24/24 18:55 06/26/24 09:05 Loratadine 10 Mg Tablet PO 10 mg QAM LOC Administration Metoprolol Tartrate 50 mg 06/24/24 09:00 06/26/24 09:06 Metoprolol Tartrate 50 Mg Tab PO 50 mg TID LOC Administration Ondansetron HCl 4 mg 06/24/24 00:59 Ondansetron Inj 4 Mg/2 Ml Vial IV PUSH Q6H PRN Nausea And Vomiting Radiology Results: ITS Impressions Head CT 06/23/24 14:32 IMPRESSION: Hydrocephalus with air seen in the anterior left frontal horn. No evidence of acute hemorrhage or infarct seen. Possible old hemorrhage in the lateral ventricles. Postoperative changes in the right frontal bone for a shunt tube. No shunt tube is seen at this time. Chest X-Ray 06/23/24 14:47 IMPRESSION: Atelectasis versus pneumonia in the lung bases more on the right side. Clinical correlation advised. Labs Labs: Laboratory Results - last 24 hr 06/24/24 06/25/24 06/25/24 22:08 11:52 22:39 WBC RBC Hgb Hct MCV MCH MCHC RDW Plt Count MPV Immature Gran % (Auto) Neut % (Auto) Lymph % (Auto) [place] % (Auto) Eos % (Auto) Baso % (Auto) Lymph # (Auto) [place] # (Auto) Eos # (Auto) Baso # (Auto) Abs Immat Gran (auto) Absolute Neuts (auto) Absolute Nucleated RBC Nucleated RBC % Sodium Potassium Chloride Carbon Dioxide Anion Gap BUN Creatinine Estim Creat Clear Calc Estimated GFR Glucose POC Capillary Glucose 112 H 146 H Calcium Total Bilirubin AST ALT Alkaline Phosphatase Total Protein Albumin Urine Opiates Screen Negative Urine Methadone Screen Negative Ur Barbiturates Screen Negative Ur Phencyclidine Scrn Negative Ur Amphetamine Screen Negative U Benzodiazepines Scrn Negative Urine Cocaine Screen Negative U Cannabinoids Screen Negative 06/26/24 06/26/24 05:43 05:53 WBC 7.2 RBC 2.55 L Hgb 8.1 L Hct 25.7 L MCV 100.8 H MCH 31.8 MCHC 31.5 L RDW 13.3 Plt Count 409 H MPV 10.4 Immature Gran % (Auto) 0.1 Neut % (Auto) 47.0 Lymph % (Auto) 26.6 [place] % (Auto) 10.2 H Eos % (Auto) 15.5 H Baso % (Auto) 0.6 Lymph # (Auto) 1.90 [place] # (Auto) 0.7 H Eos # (Auto) 1.1 H Baso # (Auto) 0.0 Abs Immat Gran (auto) 0.01 Absolute Neuts (auto) 3.4 Absolute Nucleated RBC 0.000 Nucleated RBC % 0.0 Sodium 135 L Potassium 3.7 Chloride 106 Carbon Dioxide 26 Anion Gap 3 L BUN 11 Creatinine 0.50 L Estim Creat Clear Calc 71 Estimated GFR > 60 Glucose 153 H POC Capillary Glucose 142 H Calcium 7.9 L Total Bilirubin 0.4 AST 35 ALT 27 Alkaline Phosphatase 99 Total Protein 6.0 L Albumin 2.7 L Urine Opiates Screen Urine Methadone Screen Ur Barbiturates Screen Ur Phencyclidine Scrn Ur Amphetamine Screen U Benzodiazepines Scrn Urine Cocaine Screen U Cannabinoids Screen Quality VTE Prophylaxis VTE prophylaxis: mechanical ordered
[2024-06-26 11:13] LABS: Basophils Percent Auto 0.5 % (0.2-1.2); Eosinophils Percent Auto 11.6 % (0-4.4); Hematocrit 29.2 % (37.0-47.0); Hemoglobin 9.6 g/dL (12.0-15.0); Immature Granulocyte Absolute 0.03 K/mm3 (0.00-0.031); Immature Granulocyte Percent A 0.3 % (0-0.5); Lymphocytes Absolute Auto 1.87 K/mm3 (0.9-3.2); Lymphocytes Percent Auto 21.7 % (18.3-44.2); Mean Corpuscular HGB Conc 32.9 g/dl (32-36); Mean Corpuscular Volume 100.3 fl (80-100); Mean Platelet Volume 9.8 fl (7.4-10.4); Monocytes Absolute Auto 0.8 K/mm3 (0.1-0.6); Monocytes Percent Auto 9.4 % (2.6-8.5); Neutrophils Absolute Auto 4.9 K/mm3 (1.3-6.7); Neutrophils Percent Auto 56.5 % (45.5-73.1); Platelet Count Result 458 k/mm3 (150-375); Red Blood Count 2.91 M/mm3 (4.2-5.4); Red Cell Distribution Width 13.2 % (11.5-14.5); White Blood Count 8.6 K/mm3 (4.5-10.0)
[2024-06-26 11:54] LABS: Glucose Point of Care 142 mg/dl (65-105)
[2024-06-26] MEDS: AZITHROMYCIN 250 MG TABLET 500 MG PO (17:25)
[2024-06-26 17:54] LABS: IFOB Positive Control Positive; Immunochemical Fecal Occult Bl Negative (N)
[2024-06-26 18:18] LABS: Glucose Point of Care 123 mg/dl (65-105)
[2024-06-26] MEDS: AMOXICILLIN/CLAVULANATE K 875-125 MG TAB 1 TABLET PO (20:24)
[2024-06-27] VITALS (12 sets, daily range): BP systolic 133–171; BP diastolic 60–61; PULSE 85–101; RESP 16–18; TEMP 36.4–37.3; O2SAT 96–98
[2024-06-27 00:46] LABS: Glucose Point of Care 163 mg/dl (65-105)
[2024-06-27] MEDS: SODIUM CHLORIDE 0.9% IV 1,000 ML 75 ML IV CONT (05:25)
[2024-06-27 06:19] LABS: Glucose Point of Care 122 mg/dl (65-105)
[2024-06-27 06:21] LABS: Basophils Percent Auto 0.6 % (0.2-1.2); Eosinophils Absolute Auto 0.9 K/mm3 (0-0.3); Eosinophils Percent Auto 11.8 % (0-4.4); Hematocrit 26.7 % (37.0-47.0); Hemoglobin 8.4 g/dL (12.0-15.0); Immature Granulocyte Absolute 0.02 K/mm3 (0.00-0.031); Immature Granulocyte Percent A 0.3 % (0-0.5); Lymphocytes Absolute Auto 1.59 K/mm3 (0.9-3.2); Mean Corpuscular HGB Conc 31.5 g/dl (32-36); Mean Corpuscular Hemoglobin 31.8 pg (26-34); Mean Corpuscular Volume 101.1 fl (80-100); Mean Platelet Volume 10.6 fl (7.4-10.4); Monocytes Absolute Auto 0.8 K/mm3 (0.1-0.6); Monocytes Percent Auto 11.4 % (2.6-8.5); Neutrophils Absolute Auto 3.9 K/mm3 (1.3-6.7); Neutrophils Percent Auto 53.9 % (45.5-73.1); Platelet Count Result 382 k/mm3 (150-375); Red Blood Count 2.64 M/mm3 (4.2-5.4); Red Cell Distribution Width 13.2 % (11.5-14.5); White Blood Count 7.2 K/mm3 (4.5-10.0)
[2024-06-27 06:37] LABS: Alanine Aminotransferase 40 U/L (6-35); Albumin Level 2.8 g/dL (3.5-5.1); Alkaline Phosphatase 116 U/L (38-126); Anion Gap 4 mmol/L (4-12); Aspartate Amino Transferase 52 U/L (14-36); Bilirubin,Total 0.4 mg/dL (0.2-1.3); Blood Urea Nitrogen 9 mg/dL (7-17); Calcium 8.1 mg/dL (8.4-10.2); Carbon Dioxide 28 mmol/L (22-30); Chloride 106 mmol/L (98-107); Estimated CRCL calculation 87 ml/min; Estimated Glomerular Filt Rate > 60; Glucose 135 mg/dL (65-110); Potassium 3.5 mmol/L (3.4-5.0); Sodium 138 mmol/L (137-145)
--- NOTE | 2024-06-27 09:37 | PCNFU ---
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 - Being met with tube feeding @ goal rate, 100% EER, 100% estimated protein needs Goal: Pt current nutrition is Jevity 1.5 @ 50 ml/h. Provides 1650 kcal, 70 g protein, 836 ml free water. Flush 50 ml q 4 hours for total water 1136 ml/day . Nutrition recommendation: No new nutrition recommendations. Continue current nutrition care plan and orders. Agree with orders Last recorded weight is 67.7 kg. Bowel Motility: +3 BMs 06/26/24 Labs Reviewed: Hgb 8.4, Hct 26.7, Alb 2.8, Cre 0.4, Glu 122 Meds Noted: Damaris Wilkinson Skin: No skin issues Additional Notes: From [facility] with PEG tube for nutrition. Tolerating well, having bowel movements. Discharge planning return to [facility] Will monitor, weight, labs, skin, tube feeding tolerance, meds every Sunday and Sunday.
[2024-06-27] MEDS: LORATADINE 10 MG TABLET PO (10:01)
[2024-06-27] MEDS: METOPROLOL TARTRATE 50 MG TAB PO ×3 (10:01→17:20)
[2024-06-27] MEDS: FERROUS SULFATE 325 MG TABLET DR PO ×2 (10:01→17:20)
[2024-06-27] MEDS: AMOXICILLIN/CLAVULANATE K 875-125 MG TAB 1 TABLET PO ×2 (10:02→22:00)
[2024-06-27] MEDS: HYDROCORTISONE 1% 30 GM CREAM 1 APPLIC TOPICAL ×2 (10:03→22:40)
[2024-06-27] MEDS: levETIRAcetam ORAL SOL 500 MG/5 ML UDC 750 MG PO ×2 (10:08→21:59)
--- NOTE | 2024-06-27 10:33 | P.PNIM_ITS ---
Progress Note: A&P Assessment and Plan (1) Encephalopathy acute: Code(s): G93.40 - Encephalopathy, unspecified Status: Acute Assessment and Plan: * Per patient's daughter Florinda patient was AOx2 (self and place) while at [facility]. * Head CT: Hydrocephalus with air seen in the anterior left frontal horn. No evidence of acute hemorrhage or infarct seen. Possible old hemorrhage in the lateral ventricles. Postoperative changes in the right frontal bone for a shunt tube. No shunt tube is seen at this time. * CXR: Atelectasis versus pneumonia in the lung bases more on the right side * UA ordered: Leuko 2+, RBC 51-100, WBC 21-50, Bacteria 4+, yeast present. * Urine culture negative for a UTI. * Modified barium swallow to check swallowing * See plan for right lower lobe pneumonia #2 (2) Right lower lobe pneumonia: Code(s): J18.9 - Pneumonia, unspecified organism Status: Acute Assessment and Plan: CXR: Atelectasis versus pneumonia in the lung bases more on the right side * Antibiotics: Azithromycin 500mg PO daily and Augmentin 875-125 mg 1 tab PO q 12. * Viral PCR: negative for Flu/COVID/RSV * MRSA negative * Blood cultures obtained on 06/23: no growth to date * no supplemental O2 requirement * supportive treatment * Monitor vital signs, I&Os, neuro status and patient is a fall risk * Follow WBC, serum electrolytes, temperature curves and cultures * PT/OT (3) Intracranial bleed: Code(s): I62.9 - Nontraumatic intracranial hemorrhage, unspecified Status: Acute Assessment and Plan: * Per ED note, images were sent to patient's neurosurgical team at [facility] in [place]. ED provider sent CT scans to the neuro surgical team at [facility] and they felt that the images were unchanged or improved compared to when patient had been admitted their facility. Patient did have hydrocephalus at that time as well. * Head CT: Hydrocephalus with air seen in the anterior left frontal horn. No evidence of acute hemorrhage or infarct seen. Possible old hemorrhage in the lateral ventricles. Postoperative changes in the right frontal bone for a shunt tube. No shunt tube is seen at this time. * Continue keppra 750 mg BID and metoprolol 50 mg TID (4) Anemia: Code(s): D64.9 - Anemia, unspecified Status: Acute Assessment and Plan: H/H 9.2/28.8 on admission. Unsure what baseline is as there is no prior labs for comparison. No signs of active bleeding. - H/H 8.4/26.7 on am labs - Iron panelL iron 38, TIBC 200, % sat 18 - B12 and folate WNL - started on iron supplementation - Monitor Subjective Date/time seen: 06/27/24 10:33 Interval history: Patient sitting up in chair. Daughter at bedside and denies complaints from patient. Patient denies pain. Awaiting approval for patient to return to [facility]. Daughter asking about checking patient swallowing with barium swallow, she reports that rehab was planning to check swallowing with modified barium swallow. Review of Systems Review of Systems: All systems reviewed & are unremarkable except as noted in HPI and below Exam Const: General: comfortable and no acute distress Resp: Effort & Inspection: normal respiratory effort Auscultation: diminished lung sounds Cardio: Rate: regular rate Rhythm: regular rhythm GI: GI Palp: Yes Soft to palpation Auscultation: normal bowel sounds Skin: Other: warm and dry Psych: Other: Patient is alert to voice. Follows some commands. Objective Data Vital Signs Vital Signs: Vital Signs - 24 hr 06/26/24 12:01 06/26/24 12:20 06/26/24 14:00 Temperature 98.3 F Pulse Rate 92 91 87 Respiratory Rate 16 Blood Pressure 121/42 L Pulse Oximetry 100 06/26/24 16:03 06/26/24 17:26 06/26/24 20:34 Temperature 98.9 F Pulse Rate 88 92 91 Respiratory Rate 18 Blood Pressure 149/59 H Pulse Oximetry 96 06/26/24 20:00 06/27/24 00:00 06/27/24 04:00 Temperature Pulse Rate 92 88 94 Respiratory Rate Blood Pressure Pulse Oximetry 06/27/24 06:01 06/27/24 10:01 06/27/24 08:00 Temperature 97.8 F Pulse Rate 99 99 101 H Respiratory Rate 18 Blood Pressure 133/60 Pulse Oximetry 98 Intake/Output Intake/Output: Intake & Output 06/24/24 06/25/24 06/26/24 06/27/24 23:59 23:59 23:59 23:59 Intake Total 350 2150 2568.0 1771.3 Output Total 850 600 251 Balance -500 1550 2317.0 1771.3 Meds/Results Medications: Active Medications Generic Name Dose Route Start Last Admin Trade Name Freq PRN Reason Stop Dose Admin Acetaminophen 1,000 mg 06/24/24 01:19 Acetaminophen 500 Mg Tablet PO Q6H PRN Mild Pain (1-3) or Fever Amoxicillin/Clavulanate Potassium 1 tablet 06/26/24 21:00 06/27/24 10:02 Amoxicillin/Clavulanate K 875-125 Mg Tab PO 06/30/24 09:01 1 tablet Q12HR LOC Administration Azithromycin 500 mg 06/26/24 18:00 06/26/24 17:25 Azithromycin 250 Mg Tablet PO 06/27/24 18:01 500 mg DAILY@1800 LOC Administration Ferrous Sulfate 325 mg 06/24/24 17:00 06/27/24 10:01 Ferrous Sulfate [address] PO 325 mg BID LOC Administration Hydrocortisone 1 applic 06/24/24 14:05 06/27/24 10:03 Hydrocortisone 1% 30 Gm Cream TOPICAL 1 applic Q12HR LOC Administration Sodium Chloride 1,000 mls @ 75 mls/hr 06/24/24 17:20 06/27/24 05:25 Normal Saline Iv IV CONT 75 mls/hr .[id number] LOC Administration Levetiracetam 750 mg 06/24/24 01:00 06/27/24 10:08 Levetiracetam Oral Christin 500 Mg/5 Ml Udc PO 750 mg Q12HR LOC Administration Loratadine 10 mg 06/24/24 18:55 06/27/24 10:01 Loratadine 10 Mg Tablet PO 10 mg QAM LOC Administration Metoprolol Tartrate 50 mg 06/24/24 09:00 06/27/24 10:01 Metoprolol Tartrate 50 Mg Tab PO 50 mg TID LOC Administration Ondansetron HCl 4 mg 06/24/24 00:59 Ondansetron Inj 4 Mg/2 Ml Vial IV PUSH Q6H PRN Nausea And Vomiting Radiology Results: ITS Impressions Head CT 06/23/24 14:32 IMPRESSION: Hydrocephalus with air seen in the anterior left frontal horn. No evidence of acute hemorrhage or infarct seen. Possible old hemorrhage in the lateral ventricles. Postoperative changes in the right frontal bone for a shunt tube. No shunt tube is seen at this time. Chest X-Ray 06/23/24 14:47 IMPRESSION: Atelectasis versus pneumonia in the lung bases more on the right side. Clinical correlation advised. Labs Labs: Laboratory Results - last 24 hr 06/26/24 06/26/24 06/26/24 11:06 11:49 14:49 WBC 8.6 RBC 2.91 L Hgb 9.6 L Hct 29.2 L MCV 100.3 H MCH 33.0 MCHC 32.9 RDW 13.2 Plt Count 458 H MPV 9.8 Immature Gran % (Auto) 0.3 Neut % (Auto) 56.5 Lymph % (Auto) 21.7 [place] % (Auto) 9.4 H Eos % (Auto) 11.6 H Baso % (Auto) 0.5 Lymph # (Auto) 1.87 [place] # (Auto) 0.8 H Eos # (Auto) 1.0 H Baso # (Auto) 0.0 Abs Immat Gran (auto) 0.03 Absolute Neuts (auto) 4.9 Absolute Nucleated RBC 0.000 Nucleated RBC % 0.0 Sodium Potassium Chloride Carbon Dioxide Anion Gap BUN Creatinine Estim Creat Clear Calc Estimated GFR Glucose POC Capillary Glucose 142 H Calcium Total Bilirubin AST ALT Alkaline Phosphatase Total Protein Albumin Stl Occult Blood (IFOB) Negative 06/26/24 06/27/24 06/27/24 18:15 00:32 05:49 WBC 7.2 RBC 2.64 L Hgb 8.4 L Hct 26.7 L MCV 101.1 H MCH 31.8 MCHC 31.5 L RDW 13.2 Plt Count 382 H MPV 10.6 H Immature Gran % (Auto) 0.3 Neut % (Auto) 53.9 Lymph % (Auto) 22.0 [place] % (Auto) 11.4 H Eos % (Auto) 11.8 H Baso % (Auto) 0.6 Lymph # (Auto) 1.59 [place] # (Auto) 0.8 H Eos # (Auto) 0.9 H Baso # (Auto) 0.0 Abs Immat Gran (auto) 0.02 Absolute Neuts (auto) 3.9 Absolute Nucleated RBC 0.000 Nucleated RBC % 0.0 Sodium 138 Potassium 3.5 Chloride 106 Carbon Dioxide 28 Anion Gap 4 BUN 9 Creatinine 0.40 L Estim Creat Clear Calc 87 Estimated GFR > 60 Glucose 135 H POC Capillary Glucose 123 H 163 H Calcium 8.1 L Total Bilirubin 0.4 AST 52 H ALT 40 H Alkaline Phosphatase 116 Total Protein 7.0 Albumin 2.8 L Stl Occult Blood (IFOB) 06/27/24 05:58 WBC RBC Hgb Hct MCV MCH MCHC RDW Plt Count MPV Immature Gran % (Auto) Neut % (Auto) Lymph % (Auto) [place] % (Auto) Eos % (Auto) Baso % (Auto) Lymph # (Auto) [place] # (Auto) Eos # (Auto) Baso # (Auto) Abs Immat Gran (auto) Absolute Neuts (auto) Absolute Nucleated RBC Nucleated RBC % Sodium Potassium Chloride Carbon Dioxide Anion Gap BUN Creatinine Estim Creat Clear Calc Estimated GFR Glucose POC Capillary Glucose 122 H Calcium Total Bilirubin AST ALT Alkaline Phosphatase Total Protein Albumin Stl Occult Blood (IFOB) Quality VTE Prophylaxis VTE prophylaxis: mechanical ordered
[2024-06-27 12:14] LABS: Glucose Point of Care 126 mg/dl (65-105)
[2024-06-27 16:43] LABS: Glucose Point of Care 164 mg/dl (65-105)
[2024-06-27] MEDS: AZITHROMYCIN 250 MG TABLET 500 MG PO (17:19)
[2024-06-28] VITALS (7 sets, daily range): BP systolic 124–154; BP diastolic 45–64; PULSE 82–100; RESP 16–20; TEMP 36.4–36.6; O2SAT 96–98
[2024-06-28 00:10] LABS: Glucose Point of Care 151 mg/dl (65-105)
[2024-06-28 05:22] LABS: Glucose Point of Care 129 mg/dl (65-105)
[2024-06-28 06:40] LABS: Basophils Percent Auto 0.4 % (0.2-1.2); Eosinophils Absolute Auto 1.2 K/mm3 (0-0.3); Eosinophils Percent Auto 14.3 % (0-4.4); Hematocrit 27.3 % (37.0-47.0); Immature Granulocyte Absolute 0.03 K/mm3 (0.00-0.031); Immature Granulocyte Percent A 0.4 % (0-0.5); Lymphocytes Absolute Auto 1.68 K/mm3 (0.9-3.2); Lymphocytes Percent Auto 19.7 % (18.3-44.2); Mean Corpuscular Hemoglobin 32.4 pg (26-34); Mean Corpuscular Volume 98.2 fl (80-100); Mean Platelet Volume 9.8 fl (7.4-10.4); Monocytes Absolute Auto 0.7 K/mm3 (0.1-0.6); Monocytes Percent Auto 8.6 % (2.6-8.5); Neutrophils Absolute Auto 4.8 K/mm3 (1.3-6.7); Neutrophils Percent Auto 56.6 % (45.5-73.1); Platelet Count Result 477 k/mm3 (150-375); Red Blood Count 2.78 M/mm3 (4.2-5.4); White Blood Count 8.5 K/mm3 (4.5-10.0)
[2024-06-28 06:49] LABS: Alanine Aminotransferase 63 U/L (6-35); Albumin Level 2.9 g/dL (3.5-5.1); Alkaline Phosphatase 144 U/L (38-126); Anion Gap 2 mmol/L (4-12); Aspartate Amino Transferase 74 U/L (14-36); Bilirubin,Total 0.5 mg/dL (0.2-1.3); Blood Urea Nitrogen 8 mg/dL (7-17); Calcium 8.3 mg/dL (8.4-10.2); Carbon Dioxide 29 mmol/L (22-30); Chloride 104 mmol/L (98-107); Estimated CRCL calculation 87 ml/min; Estimated Glomerular Filt Rate > 60; Glucose 136 mg/dL (65-110); Potassium 3.7 mmol/L (3.4-5.0); Sodium 135 mmol/L (137-145)
[2024-06-28] MEDS: FERROUS SULFATE 325 MG TABLET DR PO (08:26)
[2024-06-28] MEDS: LORATADINE 10 MG TABLET PO (08:26)
[2024-06-28] MEDS: AMOXICILLIN/CLAVULANATE K 875-125 MG TAB 1 TABLET PO (08:26)
[2024-06-28] MEDS: HYDROCORTISONE 1% 30 GM CREAM 1 APPLIC TOPICAL (08:30)
[2024-06-28] MEDS: METOPROLOL TARTRATE 50 MG TAB PO ×2 (08:30→12:18)
[2024-06-28] MEDS: levETIRAcetam ORAL SOL 500 MG/5 ML UDC 750 MG PO (08:34)
[2024-06-28] MEDS: ACETAMINOPHEN 500 MG TABLET 1000 MG PO (08:46)
--- NOTE | 2024-06-28 09:54 | P.DS_ITS ---
DS: Admitting Diagnosis Discharge Date 06/28/2024 Admitting Diagnosis Altered mental status DS: Discharge Diagnosis Discharge Diagnosis (1) Encephalopathy acute: Code(s): G93.40 - Encephalopathy, unspecified Status: Acute (2) Right lower lobe pneumonia: Code(s): J18.9 - Pneumonia, unspecified organism Status: Acute (3) Intracranial bleed: Code(s): I62.9 - Nontraumatic intracranial hemorrhage, unspecified Status: Acute (4) Anemia: Code(s): D64.9 - Anemia, unspecified Status: Acute DS: Summary Hospital Course Hospital Course: * Head CT: Hydrocephalus with air seen in the anterior left frontal horn. No evidence of acute hemorrhage or infarct seen. Possible old hemorrhage in the lateral ventricles. Postoperative changes in the right frontal bone for a shunt tube. No shunt tube is seen at this time. * CXR: Atelectasis versus pneumonia in the lung bases more on the right side * UA ordered: Leuko 2+, RBC 51-100, WBC 21-50, Bacteria 4+, yeast present. * Urine culture negative for a UTI. * Treated with antibiotics for pneumonia with improvement and switched to oral antibiotics. * Blood cultures showed no growth. * Received PT/OT. * Patient received Jevity 1.5 tube feedings. Daughter wants to wait until patient is at [facility] to repeat Barium swallow. Status at Discharge Functional status at discharge: wheelchair bound Overall status at discharge: patient is not back to baseline Time Spent with Patient Time attestation: Total time spent providing and/or coordinating discharge services: Time spent: Greater than 30 minutes Exam Const: General: comfortable and no acute distress Resp: Effort & Inspection: normal respiratory effort Auscultation: diminished lung sounds Cardio: Rate: regular rate Rhythm: regular rhythm GI: GI Palp: Yes Soft to palpation Auscultation: normal bowel sounds Skin: General skin exam: no rashes or lesions noted Other: Warm and dry Neuro: Other: Patient moves all 4 extremities. Extrem: General: normal to inspection Psych: Other: Alert to self but drowsy. DS: Data Data Completed and Pending Labs on day of discharge: Labs from last 24 hours 06/28/24 06/28/24 06/28/24 06:33 05:00 00:01 WBC 8.5 RBC 2.78 L Hgb 9.0 L Hct 27.3 L MCV 98.2 MCH 32.4 MCHC 33.0 RDW 13.0 Plt Count 477 H MPV 9.8 Immature Gran % (Auto) 0.4 Neut % (Auto) 56.6 Lymph % (Auto) 19.7 [place] % (Auto) 8.6 H Eos % (Auto) 14.3 H Baso % (Auto) 0.4 Lymph # (Auto) 1.68 [place] # (Auto) 0.7 H Eos # (Auto) 1.2 H Baso # (Auto) 0.0 Abs Immat Gran (auto) 0.03 Absolute Neuts (auto) 4.8 Absolute Nucleated RBC 0.000 Nucleated RBC % 0.0 Sodium 135 L Potassium 3.7 Chloride 104 Carbon Dioxide 29 Anion Gap 2 L BUN 8 Creatinine 0.40 L Estim Creat Clear Calc 87 Estimated GFR > 60 Glucose 136 H POC Capillary Glucose 129 H 151 H Calcium 8.3 L Total Bilirubin 0.5 AST 74 H ALT 63 H Alkaline Phosphatase 144 H Total Protein 7.0 Albumin 2.9 L 06/27/24 06/25/24 12:11 09:57 WBC RBC Hgb Hct MCV MCH MCHC RDW Plt Count MPV Immature Gran % (Auto) Neut % (Auto) Lymph % (Auto) [place] % (Auto) Eos % (Auto) Baso % (Auto) Lymph # (Auto) [place] # (Auto) Eos # (Auto) Baso # (Auto) Abs Immat Gran (auto) Absolute Neuts (auto) Absolute Nucleated RBC Nucleated RBC % Sodium Potassium Chloride Carbon Dioxide Anion Gap BUN Creatinine Estim Creat Clear Calc Estimated GFR Glucose POC Capillary Glucose 126 H 164 H Calcium Total Bilirubin AST ALT Alkaline Phosphatase Total Protein Albumin Preliminary micro results at discharge 06/23/24 17:19 Blood Culture - Preliminary Blood 06/23/24 17:19 Blood Culture - Preliminary Blood Discharge Plan Discharge Attending physician on discharge: Steve Barriga Discharging Clinician: Juany Stanford Anticipated Discharge Date/Time: 06/28/24 13:00 Patient Disposition: [facility] Activity: may shower Diet: tube feeding and other - see discharge instructions Discharge Instructions: * current nutrition is Jevity 1.5 @ 50 ml/h. Provides 1650 kcal, 70 g protein, 836 ml free water. Flush 50 ml q 4 hours for total water 1136 ml/day. * PT/OT/ST * Follow up with primary provider after discharged from [facility]. Patient Instructions: Pain Management (DC), Anemia (DC), Tube Feeding (DC), Pneumonia (DC) Stand Alone Forms: General Discharge Information Discharge Medications: New acetaminophen 500 mg Tablet 1,000 mg PO Q6H PRN (Reason: Mild Pain (1-3) Or Fever) Qty: 30 0RF ferrous sulfate 325 mg (65 mg iron) Tablet,Delayed Release (Dr/Ec) 325 mg PO BID Qty: 60 0RF amoxicillin-pot clavulanate 875-125 mg tablet 1 tablet PO Q12H Qty: 4 0RF Continued metoprolol tartrate 50 mg tablet 50 mg PO TID folic acid 1 mg tablet 1 mg PO DAILY levetiracetam [Keppra] 100 mg/mL Solution 750 mg PO Q12H Rx Instructions: Per G-Tube Discontinued methotrexate sodium 2.5 mg tablet 2.5 mg PO WEEKLY Rx Instructions: pt takes on Fridays; has not taken since dx of brain bleed on 05/23/24 Enbrel SureClick 50 mg/mL (1 mL) pen injector 50 mg SUBCUT WEEKLY Rx Instructions: administration; has not taken since brain bleed diagnosis in May 2024 Date of admission: 06/25/24 14:21 Primary Care Provider: UNKNOWN,DOCTOR Admitting Provider: Radha Ayala Attending physician on admission: Lisette Davis Condition: Improved Hospitalist MIPS Heart Failure (Exclusion) Patient has history of Heart Transplant or Left Ventricular Assistive Device?: No IF YES, STOP HERE Heart Failure (Qualifier) Patient has current or prior documentation of LVEF less than or equal to 40%, or mod/servere depressed LVSF?: No IF NO, STOP HERE
--- NOTE | 2024-06-28 10:02 | PCSTNOTE ---
ST attempted to complete MBS on 06/28/24. Nursing reports patient is too drowsy to participate. Will reschedule for a later time or date with improved status.
[2024-06-28 12:09] LABS: Glucose Point of Care 156 mg/dl (65-105)
== END 2024-06-28 14:30 | DRG 194 ==
LOC: ANHED 16:19 → ANH2MED 19:43
PROVIDERS: Emergency Medicine; Student in an Organized Health Care Education/Training Program; Admitting Provider Internal Medicine; Emergency Provider Emergency Medicine; Visit Provider Nurse Practitioner Family
DX: J18.9 Pneumonia, unspecified organism (principal); G91.9 Hydrocephalus, unspecified; G93.40 Encephalopathy, unspecified; R41.0 Disorientation, unspecified; D64.9 Anemia, unspecified; I10 Essential (primary) hypertension; Z20.822 Contact with and (suspected) exposure to COVID-19; Z99.3 Dependence on wheelchair; Z98.890 Other specified postprocedural states
CPT/HCPCS: 36415; 70450; 71045; 80053; 80307; 81001; 82274; 82607; 82746; 82948; 83540; 83550; 83605; 85025; 85610; 85730; 86140; 87040; 87077; 87086; 87088; 87493; 87637; 93005; 96365; 96366; 96367; 96375; 97110; 97162; 97167; 97530; 99285; A9270; G0378; J0456; J0692; J0696; J7030